=== PATIENT | female | born 1940 | race Hispanic/Latino ===

== ENCOUNTER 2017-04-03 14:44 | Emergency (ER) | payer MEDICARE ==
[2017-04-03 16:30] LABS: Basophils % (Auto) 0.7 % (0.0-1.8); Hematocrit 37.2 % (30.3-42.9); Hemoglobin 12.3 gm/dl (10.1-14.3); Mean Corpuscular HGB Conc 33 % (30-34); Mean Corpuscular Hemoglobin 30 pg (28-32); Mean Corpuscular Volume 91 fl (79-97); Platelet Count 213 K/mm3 (140-440); Red Blood Count 4.07 M/mm3 (3.65-5.03); Red Cell Distribution Width 12.5 % (13.2-15.2); White Blood Count 9.1 K/mm3 (4.5-11.0)
[2017-04-03 16:38] LABS: Bacteria,Urine 1+ /HPF (Negative); Bilirubin,Urine NEG (Negative); Blood,Urine NEG (Negative); Ketones,Urine NEG (Negative); Leukocyte Esterase,Urine NEG (Negative); Nitrite,Urine NEG (Negative); Protein,Urine <15 mg/dL mg/dL (Negative); Urobilinogen,Urine < 2.0 mg/dL (<2.0); WBC,Urine < 1.0 /HPF (0.0-6.0)
[2017-04-03 16:41] LABS: INR 0.92 (0.87-1.13)
[2017-04-03 16:52] LABS: Alanine Aminotransferase 19 units/L (7-56); Albumin/Globulin Ratio 1.5 %; Alkaline Phosphatase 59 units/L (35-129); Anion Gap 18 mmol/L; BUN/Creatinine Ratio 23.75; Blood Urea Nitrogen 19 mg/dL (7-17); Calcium 9.3 mg/dL (8.4-10.2); Carbon Dioxide 24 mmol/L (22-30); Chloride 104.4 mmol/L (98-107); Glucose 94 mg/dL (65-100); Potassium 4.9 mmol/L (3.6-5.0); Sodium 141 mmol/L (137-145); Total Protein 6.7 g/dL (6.3-8.2)
--- NOTE | 2017-04-03 17:12 | Emergency Department Report ---
ED General Adult HPI - General Chief complaint: Extremity Problem,Nontraumatic Stated complaint: BLISTERS BEHIND KNEE Time Seen by Provider: 04/03/17 16:06 Source: patient, EMS Mode of arrival: Stretcher Limitations: No Limitations - History of Present Illness Initial comments: Patient is a 76-year-old female past medical history of herpes, hypertension, COPD and medical medical comorbidities who presents with left lower extremity. Patient's left lower extremity pain has been going on for the last 6 days. She states that the pain is a 10 out of 10. Nothing makes the pain better she states walking makes it worse. She says that she came today because she noticed blistering on her left lower extremity. Patient is having burning type of pain that radiates all throughout her leg. Patient denies having any trauma to the area. Severity scale (0 -10): 8 - Related Data Home Medications Medication Instructions Recorded Confirmed Last Taken Carvedilol [Coreg] 1 tab PO QDAY 04/03/17 04/03/17 Unknown Levothyroxine [Synthroid] 150 mcg PO QAM 04/03/17 04/03/17 Unknown Previous Rx's Medication Instructions Recorded Last Taken Type Gabapentin [Neurontin] 300 mg PO Q8HR #60 capsule 04/03/17 Unknown Rx Oxycodone HCl/Acetaminophen 1 each PO Q6HR PRN #17 tablet 04/03/17 Unknown Rx [Percocet 7.5/325 mg] Valacyclovir HCl [Valtrex] 1,000 mg PO TID #42 tablet 04/03/17 Unknown Rx Allergies Allergy/AdvReac Type Severity Reaction Status Date / Time Sulfa (Sulfonamide Allergy Nausea Verified 07/29/15 13:47 Antibiotics) ED Review of Systems ROS: Stated complaint: BLISTERS BEHIND KNEE Other details as noted in HPI Constitutional: denies: chills, fever Eyes: denies: eye pain, eye discharge, vision change ENT: denies: ear pain, throat pain Respiratory: denies: cough, shortness of breath, wheezing Cardiovascular: denies: chest pain, palpitations Endocrine: no symptoms reported Gastrointestinal: denies: abdominal pain, nausea, diarrhea Genitourinary: denies: urgency, dysuria, discharge Musculoskeletal: as per HPI, other. denies: back pain, joint swelling, arthralgia Skin: denies: rash, lesions Neurological: denies: headache, weakness, paresthesias Psychiatric: denies: anxiety, depression Hematological/Lymphatic: denies: easy bleeding, easy bruising ED Past Medical Hx - Past Medical History Previous Medical History?: Yes Hx Hypertension: Yes Hx GERD: Yes Hx Renal Disease: (denies previous renal disease) Hx Arthritis: Yes (lower back) Hx Headaches / Migraines: Yes Hx COPD: Yes Additional medical history: heart murmur. Thyroid dz - Surgical History Past Surgical History?: Yes Additional Surgical History: Right shoulder replacement - Social History Smoking Status: Never Smoker Substance Use Type: None - Medications Home Medications: Home Medications Medication Instructions Recorded Confirmed Last Taken Type Carvedilol [Coreg] 1 tab PO QDAY 04/03/17 04/03/17 Unknown History Gabapentin [Neurontin] 300 mg PO Q8HR #60 capsule 04/03/17 Unknown Rx Levothyroxine [Synthroid] 150 mcg PO QAM 04/03/17 04/03/17 Unknown History Oxycodone HCl/Acetaminophen 1 each PO Q6HR PRN #17 tablet 04/03/17 Unknown Rx [Percocet 7.5/325 mg] Valacyclovir HCl [Valtrex] 1,000 mg PO TID #42 tablet 04/03/17 Unknown Rx ED Physical Exam - General Limitations: No Limitations General appearance: alert, in no apparent distress - Head Head exam: Present: atraumatic, normocephalic - Eye Eye exam: Present: normal appearance - ENT ENT exam: Present: mucous membranes moist - Neck Neck exam: Present: normal inspection - Respiratory Respiratory exam: Present: normal lung sounds bilaterally. Absent: respiratory distress - Cardiovascular Cardiovascular Exam: Present: regular rate, normal rhythm. Absent: systolic murmur, diastolic murmur, rubs, gallop - GI/Abdominal GI/Abdominal exam: Present: soft, normal bowel sounds - Extremities Exam Extremities exam: Present: other (left lower extremity is tender to palpation. Slight amount of swelling. With group based vesicles in term) - Back Exam Back exam: Present: normal inspection - Neurological Exam Neurological exam: Present: alert, oriented X3 - Psychiatric Psychiatric exam: Present: normal affect, normal mood - Skin Skin exam: Absent: rash ED Course Vital Signs 04/03/17 04/03/17 04/03/17 15:17 18:10 18:20 Temperature 98.7 F 97.9 F Pulse Rate 67 66 Respiratory 20 16 16 Rate Blood Pressure 192/73 169/66 [Right] O2 Sat by Pulse 95 97 97 Oximetry ED Medical Decision Making - Lab Data Result diagrams: 04/03/17 16:19 04/03/17 16:19 Lab Results 04/03/17 04/03/17 04/03/17 Range/Units 16:03 16:19 16:19 WBC 9.1 (4.5-11.0) K/mm3 RBC 4.07 (3.65-5.03) M/mm3 Hgb 12.3 (10.1-14.3) gm/dl Hct 37.2 (30.3-42.9) % MCV 91 (79-97) fl MCH 30 (28-32) pg MCHC 33 (30-34) % RDW 12.5 L (13.2-15.2) % Plt Count 213 (140-440) K/mm3 Lymph % (Auto) 28.9 (13.4-35.0) % [place] % (Auto) 9.2 H (0.0-7.3) % Eos % (Auto) 4.0 (0.0-4.3) % Baso % (Auto) 0.7 (0.0-1.8) % Lymph # 2.6 (1.2-5.4) K/mm3 [place] # 0.8 (0.0-0.8) K/mm3 Eos # 0.4 (0.0-0.4) K/mm3 Baso # 0.1 (0.0-0.1) K/mm3 Seg Neutrophils % 57.2 (40.0-70.0) % Seg Neutrophils # 5.2 (1.8-7.7) K/mm3 PT 12.8 (12.2-14.9) Sec. INR 0.92 (0.87-1.13) APTT 25.0 (24.2-36.6) Sec. Sodium (137-145) mmol/L Potassium (3.6-5.0) mmol/L Chloride (98-107) mmol/L Carbon Dioxide (22-30) mmol/L Anion Gap mmol/L BUN (7-17) mg/dL Creatinine (0.7-1.2) mg/dL Estimated GFR ml/min BUN/Creatinine Ratio % Glucose (65-100) mg/dL Calcium (8.4-10.2) mg/dL Total Bilirubin (0.1-1.2) mg/dL AST (5-40) units/L ALT (7-56) units/L Alkaline Phosphatase (35-129) units/L C-Reactive Protein (0.00-1.30) mg/dL Total Protein (6.3-8.2) g/dL Albumin (3.9-5) g/dL Albumin/Globulin Ratio % Urine Bilirubin Neg (Negative) Urine RBC (Auto) 3.0 (0.0-6.0) /HPF U Epithel Cells (Auto) < 1.0 (0-13.0) /HPF 04/03/17 04/03/17 Range/Units 16:19 16:19 WBC (4.5-11.0) K/mm3 RBC (3.65-5.03) M/mm3 Hgb (10.1-14.3) gm/dl Hct (30.3-42.9) % MCV (79-97) fl MCH (28-32) pg MCHC (30-34) % RDW (13.2-15.2) % Plt Count (140-440) K/mm3 Lymph % (Auto) (13.4-35.0) % [place] % (Auto) (0.0-7.3) % Eos % (Auto) (0.0-4.3) % Baso % (Auto) (0.0-1.8) % Lymph # (1.2-5.4) K/mm3 [place] # (0.0-0.8) K/mm3 Eos # (0.0-0.4) K/mm3 Baso # (0.0-0.1) K/mm3 Seg Neutrophils % (40.0-70.0) % Seg Neutrophils # (1.8-7.7) K/mm3 PT (12.2-14.9) Sec. INR (0.87-1.13) APTT (24.2-36.6) Sec. Sodium 141 (137-145) mmol/L Potassium 4.9 (3.6-5.0) mmol/L Chloride 104.4 (98-107) mmol/L Carbon Dioxide 24 (22-30) mmol/L Anion Gap 18 mmol/L BUN 19 H (7-17) mg/dL Creatinine 0.8 (0.7-1.2) mg/dL Estimated GFR > 60 ml/min BUN/Creatinine Ratio 23.75 % Glucose 94 (65-100) mg/dL Calcium 9.3 (8.4-10.2) mg/dL Total Bilirubin 0.30 (0.1-1.2) mg/dL AST 20 (5-40) units/L ALT 19 (7-56) units/L Alkaline Phosphatase 59 (35-129) units/L C-Reactive Protein 1.10 (0.00-1.30) mg/dL Total Protein 6.7 (6.3-8.2) g/dL Albumin 4.0 (3.9-5) g/dL Albumin/Globulin Ratio 1.5 % Urine Bilirubin (Negative) Urine RBC (Auto) (0.0-6.0) /HPF U Epithel Cells (Auto) (0-13.0) /HPF - Radiology Data Radiology results: report reviewed, image reviewed Venous Doppler ultrasound: Shows no signs of DVT. - Medical Decision Making Chief medical diagnosis: Shingles rash Differential diagnosis: Cellulitis, DVT, coagulopathy abnormality, viral syndrome Patient IV pain medication venous Doppler ultrasound and blood work Blood work is unremarkable for signs of infection or any coagulopathy disorder. Discussed patient with Dr. Moreno. I will send patient home with valacyclovir TID 1000 mg, Percocet and gabapentin. Patient will need to follow up with her primary care provider. Patient verbalized understanding and she agrees with plan. Gave patient return precautions, active emergency department. Critical care attestation.: If time is entered above; I have spent that time in minutes in the direct care of this critically ill patient, excluding procedure time. ED Disposition Clinical Impression: Left leg pain, Shingles (herpes zoster) polyneuropathy, Thigh shingles Disposition: - TO HOME OR SELFCARE Is pt being admited?: No Does the pt Need Aspirin: No Condition: Stable Instructions: Herpes Zoster (ED) Prescriptions: Gabapentin [Neurontin] 300 mg PO Q8HR #60 capsule Oxycodone HCl/Acetaminophen [Percocet 7.5/325 mg] 1 each PO Q6HR PRN #17 tablet PRN Reason: Pain Valacyclovir HCl [Valtrex] 1,000 mg PO TID #42 tablet Referrals: PRIMARY CARE, [Primary Care Provider] - 3-5 Days
[2017-04-03 17:31] LABS: Erythrocyte Sedimentation Rate 32 mm/Hr (0-20)
[2017-04-03] MEDS: SUBLIMAZE IV ONE (17:35)
[2017-04-03] MEDS ORDERED: ZOVIRAX IV ONE (20:09)
[2017-04-03 21:04] VITALS: BP 175/64
== END 2017-04-03 21:03 | disposition home or self-care (01) ==
LOC: ED 14:44
DX: M79.605 Pain in left leg (principal); B02.23 Postherpetic polyneuropathy; I10 Essential (primary) hypertension; K21.9 Gastro-esophageal reflux disease without esophagitis; M19.90 Unspecified osteoarthritis, unspecified site; G43.909 Migraine, unspecified, not intractable, without status migrainosus; J44.9 Chronic obstructive pulmonary disease, unspecified; Z88.2 Allergy status to sulfonamides
CPT/HCPCS: 36415; 80053; 81001; 85025; 85610; 85652; 85730; 86140; 93971; 96374; 99284; J3010